=== PATIENT | male | born 2000 | race Caucasian/White ===

== ENCOUNTER 2020-06-09 01:36 | Emergency (ER) | payer OTHER ==
[~2020-06-09] VITALS: Ht 193 cm; Wt 88.8 kg
[2020-06-09 01:38] VITALS: BP 106/52
--- NOTE | 2020-06-09 01:45 | NUR ---
ICE PACK GIVEN
== END 2020-06-09 02:58 | disposition home or self-care (01) ==
LOC: ED 02:02
DX: S63.634A Sprain of interphalangeal joint of right ring finger, initial encounter (principal); G89.11 Acute pain due to trauma; M79.641 Pain in right hand; X58.XXXA Exposure to other specified factors, initial encounter; Y93.89 Activity, other specified; Y92.098 Other place in other non-institutional residence as the place of occurrence of the external cause; Y99.8 Other external cause status
CPT/HCPCS: 29130; 99283